=== PATIENT | male | born 1960 | race Caucasian/White ===

== ENCOUNTER → 2017-11-17 | Outpatient (CLI) | payer BC, OTHER | LOC: CAT 11:08 → MRI 12:13 | DX: R63.4 Abnormal weight loss (principal); K57.30 Diverticulosis of large intestine without perforation or abscess without bleeding; J84.10 Pulmonary fibrosis, unspecified; N20.0 Calculus of kidney ==

== ENCOUNTER → 2020-02-11 | Outpatient (CLI) | payer BC, OTHER | LOC: SJCVCIMAG 09:12 | PROVIDERS: ATTEND Internal Medicine | DX: I65.23 Occlusion and stenosis of bilateral carotid arteries (principal); I10 Essential (primary) hypertension; E78.5 Hyperlipidemia, unspecified ==

== ENCOUNTER → 2020-04-29 | Outpatient (CLI) | payer BC, OTHER | LOC: LAB 08:01 | PROVIDERS: ATTEND Nurse Practitioner | DX: U07.1 COVID-19 (principal) ==